=== PATIENT | male | born 1965 | race Caucasian/White ===

== ENCOUNTER 2020-09-27 18:26 | Emergency (ER) | payer BC, OTHER ==
[2020-09-27 18:38] VITALS: BP 162/95; PULSE 85; TEMP 98.6; BMI 25.7
[2020-09-27] MEDS ORDERED: DIPHTH,PERTUSS(ACELL),TET 0.5 ML DISP.SYRIN IM ONE ×2 (18:39→18:40)
== END 2020-09-27 19:17 | disposition home or self-care (01) ==
LOC: FER 18:26
PROC: 0HQGXZZ Repair Left Hand Skin, External Approach (ICD-10-PCS; principal; 2020-09-27)
PROC: 3E0234Z Introduction of Serum, Toxoid and Vaccine into Muscle, Percutaneous Approach (ICD-10-PCS; 2020-09-27)
DX: S61.512A Laceration without foreign body of left wrist, initial encounter (principal)
CPT/HCPCS: 90715; 99284-25

== ENCOUNTER 2020-10-04 19:23 | Emergency (ER) | payer BC ==
[2020-10-04 19:30] VITALS: BP 142/84; PULSE 62; TEMP 98.1; BMI 25.7
== END 2020-10-04 20:26 | disposition home or self-care (01) ==
LOC: FER 19:23
DX: Z48.02 Encounter for removal of sutures (principal)
CPT/HCPCS: 99281-25